=== PATIENT | male | born 1955 | race Caucasian/White ===

== ENCOUNTER → 2016-11-24 | Outpatient (CLI) | payer OTHER | END | disposition home or self-care (01) | LOC: CFH 08:24 | PROVIDERS: ATTEND Physician Assistant Medical | DX: D18.09 Hemangioma of other sites (principal); M47.896 Other spondylosis, lumbar region; M47.897 Other spondylosis, lumbosacral region; M48.061 Spinal stenosis, lumbar region without neurogenic claudication; M48.07 Spinal stenosis, lumbosacral region; M51.26 Other intervertebral disc displacement, lumbar region; M51.27 Other intervertebral disc displacement, lumbosacral region; G89.29 Other chronic pain | CPT/HCPCS: 72148 ==

== ENCOUNTER → 2017-07-18 | Outpatient (CLI) | payer OTHER ==
[~2017-07-18] MED LIST: MESA0.372 PO; MULT-516 PO
[2017-07-18 11:12] LABS: BASOPHILS # (AUTO) 0.01 x10^3/uL (0-0.1); BASOPHILS % (AUTO) 0 % (0-1); EOSINOPHILS # (AUTO) 0.03 x10^3/uL (0-0.4); EOSINOPHILS % (AUTO) 0 % (1-7); LYMPHOCYTES # (AUTO) 1.73 x10^3/uL (1-3.4); LYMPHOCYTES % (AUTO) 23 % (22-44); MD NO; MEAN CORPUSCULAR HEMOGLOBIN 29.8 pg (27.5-34.5); MEAN CORPUSCULAR VOLUME 93.1 fL (81-97); MEAN PLATELET VOLUME 8.9 fL (7.4-10.4); MONOCYTES # (AUTO) 1.09 x10^3/uL (0.2-0.8); MONOCYTES % (AUTO) 14 % (2-9); NEUTROPHILS # (AUTO) 4.81 x10^3/uL (1.8-6.8); NEUTROPHILS % (AUTO) 63 % (42-75); PLATELET COUNT 234 x10^3/uL (130-400); RED BLOOD COUNT 5.04 x10^6/uL (4.38-5.82)
[2017-07-18 11:20] LABS: INTERNATIONAL NORMALIZED RATIO 1.07 (0.93-1.1)
[2017-07-18 11:24] LABS: ANION GAP 8 mmol/L (5-15); CHLORIDE 108 mmol/L (98-107); CREATININE 1.01 mg/dL (0.7-1.3)
[2017-07-18 11:51] LABS: MICROSCOPIC NOT IND
[2017-07-18 11:56] LABS: CULTURE INDICATED? NO
== END | disposition home or self-care (01) ==
LOC: STAR 09:56
PROVIDERS: ATTEND Neurological Surgery
DX: Z01.818 Encounter for other preprocedural examination (principal); M48.061 Spinal stenosis, lumbar region without neurogenic claudication; M47.26 Other spondylosis with radiculopathy, lumbar region; M51.16 Intervertebral disc disorders with radiculopathy, lumbar region; I25.2 Old myocardial infarction
CPT/HCPCS: 36415; 71046; 72114; 80048; 81003; 85025; 85610; 85730; 93005

== ENCOUNTER 2017-07-26 10:23 | Day surgery (SDC) | payer OTHER ==
[~2017-07-26] VITALS: Ht 188 cm; Wt 117.7 kg
[2017-07-26] MEDS ORDERED: GABAPENTIN 300 MG CAPSULE PO ONE (10:30)
[2017-07-26] MEDS ORDERED: OXYcodone IR 5MG TABLET PO ONE (10:30)
[2017-07-26] MEDS ORDERED: ONDANSETRON ODT 8 MG PO ONE (10:30)
[2017-07-26] MEDS ORDERED: ACETAMINOPHEN 500 MG TABLET PO ONE (10:30)
[2017-07-26] MEDS ORDERED: LACTATED RINGERS 1,000 ML IV SCH (11:11)
[2017-07-26 11:15] VITALS: BP 135/90
[2017-07-26] MEDS ORDERED: MIDAZOLAM 1 MG/ML, 2ML ONE (12:30)
[2017-07-26] MEDS ORDERED: FENTANYL PF 250 MCG/5ML ONE (12:31)
[2017-07-26] MEDS ORDERED: BUPIVACAINE 0.25% ONE (12:38)
[2017-07-26] MEDS ORDERED: THROMBIN 5,000 UNIT VIAL TP ONE (12:38)
[2017-07-26] MEDS ORDERED: BACITRACIN OINT 500U/GM, 15 GM ONE (12:38)
[2017-07-26] MEDS ORDERED: EPINEPHRINE 1 MG/ML, 1ML ONE (12:38)
[2017-07-26] MEDS ORDERED: BACITRACIN 50,000 UNIT ONE (12:39)
[2017-07-26] MEDS ORDERED: PROPOFOL 10 MG/ML, 20ML ONE (12:47)
[2017-07-26] MEDS ORDERED: SUCCINYLCHOLINE 20 MG/ML, 10ML ONE (12:47)
[2017-07-26] MEDS ORDERED: CEFAZOLIN 1,000 MG ONE (12:47)
[2017-07-26] MEDS ORDERED: ONDANSETRON 2MG/ML, 2ML ONE (12:47)
[2017-07-26] MEDS ORDERED: VALA1000 PO (13:46)
[2017-07-26] MEDS ORDERED: MEPERIDINE/PF 25MG/0.5ML IVPush PRN (14:00)
[2017-07-26] MEDS ORDERED: ALBUTEROL SULFATE 2.5 MG/3 ML NPPB PRN (14:00)
[2017-07-26] MEDS ORDERED: PROMETHAZINE 25 MG/ML, 1ML IV PRN (14:00)
[2017-07-26] MEDS ORDERED: HYDROmorphone 1 MG/ML, 1ML IV PRN (14:00)
[2017-07-26] MEDS ORDERED: hydrALAzine 20 MG/ML, 1ML IV PRN (14:00)
[2017-07-26] MEDS ORDERED: LORazepam 2 MG/ML, 1ML IVPush PRN (14:00)
[2017-07-26] MEDS ORDERED: FENTANYL PF 100 MCG/2ML IV PRN (14:00)
[2017-07-26] MEDS ORDERED: LABETALOL 5MG/ML, 20ML IV PRN (14:00)
[2017-07-26] MEDS ORDERED: OXYcodone 5 MG/5 ML ORAL.SOL UDC PO PRN (14:00)
== END 2017-07-26 15:25 ==
LOC: OUT 10:23
PROVIDERS: ATTEND Neurological Surgery
DX: M48.061 Spinal stenosis, lumbar region without neurogenic claudication (principal); M47.26 Other spondylosis with radiculopathy, lumbar region; G47.33 Obstructive sleep apnea (adult) (pediatric); Z53.9 Procedure and treatment not carried out, unspecified reason; Z90.49 Acquired absence of other specified parts of digestive tract; Z79.82 Long term (current) use of aspirin
CPT/HCPCS: 63047; J0171; J0330; J0690; J2250; J2405; J2704; J3010; J3490; J7120; Q0162

== ENCOUNTER 2017-08-08 12:20 | Observation (INO) | payer OTHER ==
[~2017-08-08] VITALS: Ht 188 cm; Wt 112.6 kg
[~2017-08-08 12:20] MED LIST changes: +BACITRACIN 50,000 UNIT ONE; +BUPIVACAINE/PF 0.5% ONE; +EPINEPHRINE 1 MG/ML, 1ML ONE; +THROMBIN 5,000 UNIT VIAL TP ONE; +VALA1000 PO
[2017-08-08] MEDS ORDERED: LACTATED RINGERS 1,000 ML IV SCH (13:22)
[2017-08-08] MEDS ORDERED: VALA1000 PO (13:36)
[2017-08-08] MEDS ORDERED: CEFAZOLIN 1,000 MG ONE (14:28)
[2017-08-08] MEDS ORDERED: PROPOFOL 10 MG/ML, 20ML ONE (14:28)
[2017-08-08] MEDS ORDERED: SUCCINYLCHOLINE 20 MG/ML, 10ML ONE (14:28)
[2017-08-08] MEDS ORDERED: ROCURONIUM 10 MG/ML,10ML ONE (14:28)
[2017-08-08] MEDS ORDERED: DEXAMETHASONE 4 MG/ML, 1ML ONE (14:28)
[2017-08-08] MEDS ORDERED: ACETAMINOPHEN 500 MG TABLET PO ONE (14:30)
[2017-08-08] MEDS ORDERED: SCOPOLAMINE PATCH, 1.5MG PATCH.TD72 TD ONE (14:30)
[2017-08-08] MEDS ORDERED: ONDANSETRON ODT 8 MG PO ONE (14:30)
[2017-08-08] MEDS ORDERED: OxyconTIN ER 10 MG TAB.ER PO ONE (14:30)
[2017-08-08] MEDS ORDERED: MORPHINE SULFATE 4 MG/ML, 1ML IVPush PRN (15:30)
[2017-08-08] MEDS ORDERED: LABETALOL 5MG/ML, 20ML IV PRN (15:30)
[2017-08-08] MEDS ORDERED: MIDAZOLAM 1 MG/ML, 2ML IV PRN (15:30)
[2017-08-08] MEDS ORDERED: ALBUTEROL SULFATE 2.5 MG/3 ML NPPB PRN (15:30)
[2017-08-08] MEDS ORDERED: ONDANSETRON ODT 8 MG PO PRN (15:30)
[2017-08-08] MEDS ORDERED: PROMETHAZINE 12.5 MG SUPP PR PRN (15:30)
[2017-08-08] MEDS ORDERED: FENTANYL PF 100 MCG/2ML IV PRN (15:30)
[2017-08-08] MEDS ORDERED: OXYcodone 5 MG/5 ML ORAL.SOL UDC PO PRN (15:30)
[2017-08-08] MEDS ORDERED: MEPERIDINE/PF 25MG/0.5ML IVPush PRN (15:30)
[2017-08-08] MEDS ORDERED: PROMETHAZINE 25 MG/ML, 1ML IV PRN (15:30)
[2017-08-08] MEDS ORDERED: hydrALAzine 20 MG/ML, 1ML IV PRN (15:30)
[2017-08-08] MEDS ORDERED: OXYcodone 5 MG/5 ML ORAL.SOL UDC ONE (16:41)
[2017-08-08 17:20] VITALS: BP 126/73
[2017-08-08] MEDS ORDERED: METHOCARBAMOL 1,000 MG in DEXTROSE 5% 100 ML IV ONE (17:30)
[2017-08-08] MEDS ORDERED: DIPHENHYDRAMINE 50 MG/ML, 1ML IM PRN (17:30)
[2017-08-08] MEDS ORDERED: BISACODYL 10 MG SUPP PR PRN (17:30)
[2017-08-08] MEDS ORDERED: DIPHENHYDRAMINE 50 MG CAPSULE PO PRN (17:30)
[2017-08-08] MEDS ORDERED: ONDANSETRON 2MG/ML, 2ML IV PRN (17:30)
[2017-08-08] MEDS ORDERED: HYDROcodone/APAP 5/325 TABLET PO PRN (17:30)
[2017-08-08] MEDS ORDERED: MAGNESIUM HYDROXIDE 8%, 30ML UDC PO PRN (17:30)
[2017-08-08] MEDS ORDERED: morphine SULFATE 10 MG/ML, 1ML IV PRN (17:30)
[2017-08-08] MEDS ORDERED: OXYcodone/APAP 5/325MG TABLET PO PRN (17:30)
[2017-08-08] MEDS ORDERED: DIPHENHYDRAMINE 50 MG/ML, 1ML IVPush PRN (17:30)
[2017-08-08] MEDS: LABETALOL 5MG/ML, 20ML IV SCH (17:38)
[2017-08-08] MEDS: D5%-0.9% NACL+KCL 20MEQ 1,000 ML IV SCH (18:32)
[2017-08-08 19:53] VITALS: BP 119/76
[2017-08-08] MEDS: VALACYCLOVIR 500MG TABLET PO SCH (20:22)
[2017-08-08] MEDS: CEFAZOLIN PMX 1GM/50ML 50 ML IVPB SCH (23:08)
[2017-08-09 00:08] VITALS: BP 117/61
[2017-08-09] MEDS: METHOCARBAMOL 750 MG in DEXTROSE 5% 100 ML IV SCH ×2 (02:54→09:10)
[2017-08-09] MEDS: LABETALOL 5MG/ML, 20ML IV SCH ×2 (03:02→09:10)
[2017-08-09 03:06] VITALS: BP 117/73
[2017-08-09] MEDS ORDERED: ENOXAPARIN 40 MG/0.4 ML SQ SCH (06:00)
[2017-08-09] MEDS: CEFAZOLIN PMX 1GM/50ML 50 ML IVPB SCH (06:41)
[2017-08-09] MEDS: D5%-0.9% NACL+KCL 20MEQ 1,000 ML IV SCH (06:42)
[2017-08-09 08:32] VITALS: BP 114/74
[2017-08-09] MEDS: VALACYCLOVIR 500MG TABLET PO SCH (09:00)
[2017-08-09] MEDS ORDERED: APRISO 0.375 GM HOMEMEDPO SCH (09:00)
[2017-08-09] MEDS ORDERED: MULTIVITAMIN 1 TABLET PO SCH (09:00)
[2017-08-09] MEDS ORDERED: SENNA/DOCUSATE TABLET PO SCH (09:00)
[2017-08-09] MEDS ORDERED: OXYC-302 PO (10:21)
[2017-08-09] MEDS ORDERED: METH750T87 PO (10:22)
[2017-08-09] MEDS ORDERED: GABAPENTIN (23:30)
[2017-08-09] MEDS ORDERED: OXYC1TAB7 PO (23:32)
[2017-08-11] MEDS ORDERED: METHOCARBAMOL 750 MG TABLET PO SCH (09:30)
== END 2017-08-09 10:36 | disposition home or self-care (01) ==
LOC: OUT 12:20 → 4NOR 17:20 → OUT 17:23 → 4NOR 17:24 → DCLOUNGE 08-09 10:16
PROVIDERS: ADMIT Neurological Surgery; ATTEND Neurological Surgery
DX: M48.061 Spinal stenosis, lumbar region without neurogenic claudication (principal); M47.26 Other spondylosis with radiculopathy, lumbar region
CPT/HCPCS: 63047; 72100; 96365; 96367; 96372; 96375; G0378; J0171; J0330; J0690; J1100; J1200; J1650; J2704; J2800; J3480; J3490; J7120; Q0162

== ENCOUNTER 2017-08-09 21:57 | Inpatient (IN) | payer OTHER ==
[~2017-08-09] VITALS: Ht 188 cm; Wt 112.0 kg
[~2017-08-09 21:57] MED LIST changes: -BACITRACIN 50,000 UNIT ONE; -BUPIVACAINE/PF 0.5% ONE; -EPINEPHRINE 1 MG/ML, 1ML ONE; +METH750T87 PO; +OXYC-302 PO; -THROMBIN 5,000 UNIT VIAL TP ONE
[2017-08-09] MEDS ORDERED: ONDANSETRON 2MG/ML, 2ML IVPush ONE (22:30)
[2017-08-09] MEDS ORDERED: SODIUM CHLORIDE FLUSH 10ML SYR IVF ONE (22:30)
[2017-08-09 22:51] LABS: MEAN CORPUSCULAR HEMOGLOBIN 31.1 pg (27.5-34.5); MEAN CORPUSCULAR VOLUME 91.5 fL (81-97); MEAN PLATELET VOLUME 8.9 fL (7.4-10.4); PLATELET COUNT 198 x10^3/uL (130-400); RED BLOOD COUNT 4.49 x10^6/uL (4.38-5.82); RED CELL DISTRIBUTION WIDTH 15.5 % (9.4-14.8)
[2017-08-09 22:55] LABS: ALBUMIN 3.7 g/dL (3.4-5.0); ANION GAP 8 mmol/L (5-15); CALCIUM 8.6 mg/dL (8.5-10.1); CHLORIDE 112 mmol/L (98-107); CREATININE 1.13 mg/dL (0.7-1.3)
[2017-08-09] MEDS ORDERED: HYDROmorphone 2 MG/ML, 1ML ONE (23:01)
[2017-08-09] MEDS ORDERED: ONDANSETRON 2MG/ML, 2ML ONE (23:01)
[2017-08-09] MEDS: HYDROmorphone 1 MG/ML, 1ML IVPush PRN (23:22)
[2017-08-09 23:26] LABS: BASOPHILS # (AUTO) 0.01 x10^3/uL (0-0.1); BASOPHILS % (AUTO) 0 % (0-1); EOSINOPHILS % (AUTO) 0 % (1-7); LYMPHOCYTES # (AUTO) 0.87 x10^3/uL (1-3.4); LYMPHOCYTES % (AUTO) 7 % (22-44); MD SCAN; MONOCYTES # (AUTO) 2.47 x10^3/uL (0.2-0.8); MONOCYTES % (AUTO) 18 % (2-9); NEUTROPHILS # (AUTO) 10.08 x10^3/uL (1.8-6.8); NEUTROPHILS % (AUTO) 75 % (42-75)
[2017-08-09] MEDS ORDERED: GABAPENTIN (23:30)
[2017-08-09] MEDS ORDERED: OXYC1TAB7 PO (23:32)
[2017-08-10] MEDS ORDERED: morphine SULFATE 10 MG/ML, 1ML IVPush PRN
[2017-08-10] MEDS ORDERED: POLYETHYLENE GLYCOL 17 GM PACKET PO PRN
[2017-08-10] MEDS ORDERED: SODIUM CHLORIDE FLUSH 10ML SYR IVF PRN
[2017-08-10] MEDS ORDERED: ONDANSETRON 2MG/ML, 2ML IVPush PRN
[2017-08-10] MEDS ORDERED: HYDROmorphone 2 MG/ML, 1ML ONE ×2 (01:16→12:07)
[2017-08-10] MEDS: HYDROmorphone 1 MG/ML, 1ML IVPush PRN (01:24)
[2017-08-10] MEDS ORDERED: GADOBUTROL 10 MMOL/10 ML PFS ONE (02:03)
[2017-08-10 04:17] VITALS: BP 125/75
[2017-08-10] MEDS: HYDROmorphone 2 MG/ML, 1ML IV PRN ×4 (04:49→12:12)
[2017-08-10] MEDS ORDERED: DEXAMETHASONE 4 MG/ML, 1ML IVPush ONE (05:45)
[2017-08-10 06:00] LABS: MEAN CORPUSCULAR HEMOGLOBIN 30.8 pg (27.5-34.5); MEAN CORPUSCULAR HGB CONC 33.5 g/dL (33.2-36.2); MEAN CORPUSCULAR VOLUME 91.9 fL (81-97); MEAN PLATELET VOLUME 8.4 fL (7.4-10.4); PLATELET COUNT 186 x10^3/uL (130-400); RED BLOOD COUNT 4.33 x10^6/uL (4.38-5.82); RED CELL DISTRIBUTION WIDTH 15.3 % (9.4-14.8)
[2017-08-10 06:02] LABS: ALANINE AMINOTRANSFERASE 49 U/L (12-78); ALBUMIN 3.5 g/dL (3.4-5.0); ANION GAP 7 mmol/L (5-15); CALCIUM 8.5 mg/dL (8.5-10.1); CHLORIDE 110 mmol/L (98-107); CREATININE 0.94 mg/dL (0.7-1.3)
[2017-08-10 06:04] LABS: ALKALINE PHOSPHATASE 54 U/L (45-117); BILIRUBIN,TOTAL 0.4 mg/dL (0.2-1.0); TOTAL PROTEIN 7.1 g/dL (6.4-8.2)
[2017-08-10 06:21] LABS: MD YES
[2017-08-10 06:22] LABS: LYMPH#(MANUAL) 1.37 x10^3/uL (1-3.4); LYMPHS% (MANUAL) 9 % (22-44); METAMYELOCYTES# (MANUAL) 0.15 x10^3/uL (0-0); METAMYELOCYTES% (MANUAL) 1 % (0-1); MONOS% (MANUAL) 27 % (2-9); SEG#(MANUAL) 9.58 x10^3/uL (1.8-6.8); SEGS% (MANUAL) 63 % (42-75)
[2017-08-10 06:23] LABS: <PLATELET ESTIMATE> ADEQUATE; ANISOCYTOSIS 1+; OVALOCYTES 1+
[2017-08-10 06:24] LABS: GIANT PLATELETS 1+; LARGE PLATELETS 1+
[2017-08-10 07:06] VITALS: BP 131/74
[2017-08-10] MEDS: MULTIVITAMIN 1 TABLET PO SCH (09:00)
[2017-08-10] MEDS: MESALAMINE 250 MG CAPSULE.ER PO SCH (09:00)
[2017-08-10] MEDS: SODIUM CHLORIDE FLUSH 10ML SYR IVF SCH ×2 (09:15)
[2017-08-10] MEDS: SENNA/DOCUSATE TABLET PO SCH (09:16)
[2017-08-10] MEDS ORDERED: FENTANYL PF 250 MCG/5ML ONE (10:24)
[2017-08-10] MEDS ORDERED: MIDAZOLAM 1 MG/ML, 2ML ONE (10:24)
[2017-08-10] MEDS ORDERED: BUPIVACAINE/PF 0.5% ONE (10:32)
[2017-08-10] MEDS ORDERED: THROMBIN 5,000 UNIT VIAL TP ONE (10:32)
[2017-08-10] MEDS ORDERED: EPINEPHRINE 1 MG/ML, 1ML ONE (10:32)
[2017-08-10] MEDS ORDERED: SUCCINYLCHOLINE 20 MG/ML, 10ML ONE (10:44)
[2017-08-10] MEDS ORDERED: PROPOFOL 10 MG/ML, 20ML ONE (10:44)
[2017-08-10] MEDS ORDERED: ONDANSETRON 2MG/ML, 2ML ONE (10:44)
[2017-08-10] MEDS ORDERED: CEFAZOLIN 1,000 MG ONE (10:44)
[2017-08-10] MEDS ORDERED: ROCURONIUM 10 MG/ML,10ML ONE (10:44)
[2017-08-10] MEDS ORDERED: EPINEPHRINE 1 MG/ML, 1ML INFIL ONE (11:18)
[2017-08-10] MEDS ORDERED: BUPIVACAINE/PF 0.5% INFIL ONE (11:18)
[2017-08-10] MEDS ORDERED: FENTANYL PF 100 MCG/2ML IV PRN (11:30)
[2017-08-10] MEDS ORDERED: OXYcodone 5 MG/5 ML ORAL.SOL UDC PO PRN (11:30)
[2017-08-10] MEDS ORDERED: PROMETHAZINE 25 MG/ML, 1ML IV PRN (11:30)
[2017-08-10] MEDS ORDERED: ACETAMINOPHEN 325 MG TABLET PO PRN ×2 (11:30)
[2017-08-10] MEDS ORDERED: ALBUTEROL SULFATE 2.5 MG/3 ML NPPB PRN (11:30)
[2017-08-10] MEDS ORDERED: DIAZEPAM 5 MG/ML, 2ML IVPush PRN (11:30)
[2017-08-10] MEDS ORDERED: MORPHINE SULFATE 4 MG/ML, 1ML IVPush PRN (11:30)
[2017-08-10] MEDS ORDERED: ACETAMINOPHEN 650 MG/20.3 ML UDC ONE (12:00)
[2017-08-10] MEDS ORDERED: OXYcodone 5 MG/5 ML ORAL.SOL UDC ONE (12:00)
[2017-08-10] MEDS ORDERED: FENTANYL PF 100 MCG/2ML ONE (12:07)
[2017-08-10] MEDS: HYDROmorphone 1 MG/ML, 1ML IV PRN ×4 (12:14→12:35)
[2017-08-10 13:00] VITALS: BP 115/69
[2017-08-10] MEDS ORDERED: METHOCARBAMOL 750 MG TABLET PO PRN ×2 (13:30)
[2017-08-10] MEDS ORDERED: LABETALOL 5MG/ML, 20ML IV SCH (13:30)
[2017-08-10] MEDS ORDERED: HYDROcodone/APAP 5/325 TABLET PO PRN (13:30)
[2017-08-10] MEDS ORDERED: DIPHENHYDRAMINE 50 MG/ML, 1ML IVPush PRN (13:30)
[2017-08-10] MEDS ORDERED: DIPHENHYDRAMINE 50 MG/ML, 1ML IM PRN (13:30)
[2017-08-10] MEDS ORDERED: PROMETHAZINE 25 MG/ML, 1ML IM PRN (13:30)
[2017-08-10] MEDS ORDERED: ONDANSETRON 2MG/ML, 2ML IV PRN (13:30)
[2017-08-10] MEDS ORDERED: MAGNESIUM HYDROXIDE 8%, 30ML UDC PO PRN (13:30)
[2017-08-10] MEDS ORDERED: morphine SULFATE 10 MG/ML, 1ML IV PRN (13:30)
[2017-08-10] MEDS ORDERED: DIPHENHYDRAMINE 50 MG CAPSULE PO PRN (13:30)
[2017-08-10] MEDS ORDERED: BISACODYL 10 MG SUPP PR PRN ×2 (13:30)
[2017-08-10] MEDS: D5%-0.9% NACL+KCL 20MEQ 1,000 ML IV SCH (15:54)
[2017-08-10] MEDS ORDERED: LABETALOL 5MG/ML, 20ML IV PRN (16:00)
[2017-08-10] MEDS: CEFAZOLIN PMX 1GM/50ML 50 ML IVPB SCH (20:10)
[2017-08-10 20:22] VITALS: BP 123/66
[2017-08-10] MEDS: OXYcodone/APAP 5/325MG TABLET PO PRN (21:44)
[2017-08-10] MEDS: METHOCARBAMOL 750 MG TABLET PO PRN (21:44)
[2017-08-11 00:11] VITALS: BP 113/67
[2017-08-11] MEDS: D5%-0.9% NACL+KCL 20MEQ 1,000 ML IV SCH (02:00)
[2017-08-11] MEDS: CEFAZOLIN PMX 1GM/50ML 50 ML IVPB SCH (04:10)
[2017-08-11 04:33] VITALS: BP 116/70
[2017-08-11] MEDS: METHOCARBAMOL 750 MG TABLET PO PRN (06:02)
[2017-08-11] MEDS: OXYcodone/APAP 5/325MG TABLET PO PRN (06:03)
[2017-08-11 06:10] LABS: ANION GAP 5 mmol/L (5-15); CALCIUM 8.4 mg/dL (8.5-10.1); CHLORIDE 110 mmol/L (98-107)
[2017-08-11 06:25] LABS: MEAN CORPUSCULAR HEMOGLOBIN 31.1 pg (27.5-34.5); MEAN CORPUSCULAR HGB CONC 33.4 g/dL (33.2-36.2); MEAN CORPUSCULAR VOLUME 93.2 fL (81-97); MEAN PLATELET VOLUME 8.8 fL (7.4-10.4); PLATELET COUNT 196 x10^3/uL (130-400)
[2017-08-11 06:38] LABS: MD YES
[2017-08-11 06:39] LABS: LYMPHS% (MANUAL) 8 % (22-44); MONOS#(MANUAL) 2.92 x10^3/uL (0.3-2.7); MONOS% (MANUAL) 18 % (2-9); SEG#(MANUAL) 11.99 x10^3/uL (1.8-6.8); SEGS% (MANUAL) 74 % (42-75)
[2017-08-11 06:40] LABS: ANISOCYTOSIS 1+
[2017-08-11 06:41] LABS: <PLATELET ESTIMATE> ADEQUATE; LARGE PLATELETS 1+
[2017-08-11 07:05] VITALS: BP 127/78
[2017-08-11] MEDS: MULTIVITAMIN 1 TABLET PO SCH (08:40)
[2017-08-11] MEDS: MESALAMINE 250 MG CAPSULE.ER PO SCH (08:40)
[2017-08-11] MEDS: SENNA/DOCUSATE TABLET PO SCH (08:42)
[2017-08-11] MEDS ORDERED: SENNA/DOCUSATE TABLET PO SCH (09:00)
[2017-08-11] MEDS ORDERED: ENOXAPARIN 40 MG/0.4 ML SQ SCH (12:00)
== END 2017-08-11 10:05 | disposition home or self-care (01) | DRG 515 ==
LOC: ED 23:52 → EDIP 23:55 → 4NOR 08-10 03:30 → DCLOUNGE 08-11 09:50
PROVIDERS: ADMIT Hospitalist; ATTEND Hospitalist
PROC: 00C30ZZ Extirpation of Matter from Intracranial Epidural Space, Open Approach (ICD-10-PCS; 2017-08-10)
PROC: 01NB0ZZ Release Lumbar Nerve, Open Approach (ICD-10-PCS; principal; 2017-08-10 09:00)
DX: M48.061 Spinal stenosis, lumbar region without neurogenic claudication (principal); S06.4X0A Epidural hemorrhage without loss of consciousness, initial encounter; D72.829 Elevated white blood cell count, unspecified; M47.26 Other spondylosis with radiculopathy, lumbar region; X58.XXXA Exposure to other specified factors, initial encounter; Y93.89 Activity, other specified; Y92.89 Other specified places as the place of occurrence of the external cause; Y99.8 Other external cause status
CPT/HCPCS: 36415; 72158; 80048; 80053; 82040; 85025; 96374; A9585; J0171; J0690; J1100; J1170; J2250; J2405; J2704; J3010; J3490; J0330; J2270

== ENCOUNTER → 2020-04-16 | Outpatient (CLI) | payer OTHER ==
[~2020-04-16] MED LIST changes: +GABAPENTIN; -OXYC-302 PO; +OXYC1TAB14 PO; +OXYC1TAB7 PO; -VALA1000 PO; +VALA10007 PO
== END | disposition home or self-care (01) ==
LOC: CFH 08:24
PROVIDERS: ATTEND Family Medicine
DX: M25.472 Effusion, left ankle (principal)